=== PATIENT | male | born 1980 | race Caucasian/White ===

== ENCOUNTER 2020-07-27 08:31 | Emergency (ER) | payer OTHER ==
[~2020-07-27] VITALS: Ht 177.8 cm; Wt 99.8 kg
[~2020-07-27 08:31] MED LIST: ATOR40TA PO; B-1100 M1 PO; CEFD300 PO; CEPH500 PO; Cleocin HCl150 MG PO; DOCU100 PO; DOK100 M2 PO; HYDROCODONE-AC1 EAC5 PO; IBUP600 PO; LISI20 PO; LISINOPRIL2.5 MG PO; MOTRIN IB200 MG PO; Mobic15 MG PO; NIFE60ER PO; ONDA4ODT MM; ONDA4ODT SL; OXYACE5T PO; PRIMLEV PO; PROM25 PO; Percocet 5-3251 EACH PO; ROXICODONE5 MG PO; Ultram50 MG PO
[2020-07-27] MEDS ORDERED: Veetids 500500 MG PO (10:06)
== END 2020-07-27 10:12 | disposition home or self-care (01) ==
LOC: ER 08:31
DX: K04.7 Periapical abscess without sinus (principal); S61.432A Puncture wound without foreign body of left hand, initial encounter; F17.200 Nicotine dependence, unspecified, uncomplicated; W27.0XXA Contact with workbench tool, initial encounter
CPT/HCPCS: 73120; 99283-25

== ENCOUNTER 2020-10-15 07:19 | Emergency (ER) | payer OTHER ==
[~2020-10-15] VITALS: Ht 177.8 cm; Wt 99.8 kg
[~2020-10-15 07:19] MED LIST changes: +Veetids 500500 MG PO
[2020-10-15 08:21] LABS: BASOPHILS ABSOLUTE AUTO 0.08 K/mm3 (0.00-0.23); BASOPHILS PERCENT AUTO 0 % (0-2); EOSINOPHILS ABSOLUTE AUTO 0.06 K/mm3 (0.00-0.68); EOSINOPHILS PERCENT AUTO 0 % (0-6); Hematocrit 49.1 % (37.0-53.0); Hemoglobin 17.3 g/dL (13.5-17.5); IMMATURE GRAN ABSOLUTE AUTO 0.13 K/mm3 (0.00-0.10); IMMATURE GRAN PERCENT AUTO 1 % (0-1); LYMPHOCYTES ABSOLUTE AUTO 1.94 K/mm3 (0.84-5.20); LYMPHOCYTES PERCENT AUTO 10 % (21-46); MONOCYTES ABSOLUTE AUTO 1.69 K/mm3 (0.16-1.47); MONOCYTES PERCENT AUTO 8 % (4-13); Mean Corpuscular HGB 31.5 pg (26.0-34.0); Mean Corpuscular HGB Conc 35.2 g/dL (31.5-36.5); Mean Corpuscular Volume 89 fL (80-100); Mean Platelet Volume 11.5 fL (9.1-12.4); NEUTROPHILS PERCENT AUTO 81 % (41-73); Platelet Count 166 K/mm3 (150-400); RDW Coefficient Variation 14.3 % (11.7-14.2); RDW Standard Deviation 46.3 fL (35.1-46.3)
[2020-10-15 08:36] LABS: Alanine Aminotransfer (ALT/SGP 91 U/L (12-78); Albumin, Blood 3.9 g/dL (3.4-5.0); Alk Phos 84 U/L (50-136); Anion Gap 7 mmol/L (6-16); Aspartate Aminotrans (AST/SGOT 53 U/L (12-37); Bilirubin, Total 0.7 mg/dL (0.1-1.0); Blood Urea Nitrogen 12 mg/dL (8-24); Bun/Creatinine Ratio 12.7 (12.0-20.0); CO2, Blood 24 mmol/L (21-32); Calcium, Blood 8.6 mg/dL (8.5-10.1); Chloride, Blood 102 mmol/L (98-108); Creatinine, Blood 0.95 mg/dL (0.60-1.20); Globulin, Blood 3.8 g/dL (2.2-4.0); Glomerular Filtration Rate >60 (60-); Glucose, Blood 133 mg/dL (70-99); Potassium, Blood 3.6 mmol/L (3.5-5.5); Sodium, Blood 133 mmol/L (136-145); Total Protein, Blood 7.7 g/dL (6.4-8.2)
[2020-10-15] MEDS ORDERED: OXYC5 PO (12:23)
[2020-10-15] MEDS ORDERED: ZESTRIL40 M1 PO (12:23)
== END 2020-10-15 12:35 | disposition home or self-care (01) ==
LOC: ER 07:19
PROVIDERS: Emergency Medicine
DX: K85.90 Acute pancreatitis without necrosis or infection, unspecified (principal); F17.290 Nicotine dependence, other tobacco product, uncomplicated
CPT/HCPCS: 36415; 74177; 80053; 83690; 85025; 96361; 96374; 96375; 96376; 99285-25; J1170; J1885; J2405; J7120; Q9967

== ENCOUNTER → 2020-10-20 | Outpatient (CLI) | payer OTHER ==
[~2020-10-20] MED LIST changes: +OXYC5 PO; +ZESTRIL40 M1 PO
== END | disposition home or self-care (01) ==
LOC: LAB 19:11 → LAB SHORT 19:11
DX: F10.20 Alcohol dependence, uncomplicated (principal)
CPT/HCPCS: 82607; 82746; 84425

== ENCOUNTER → 2021-04-20 | Outpatient (CLI) | payer OTHER ==
[2021-04-20 11:29] LABS: BASOPHILS ABSOLUTE AUTO 0.04 K/mm3 (0.00-0.23); BASOPHILS PERCENT AUTO 0 % (0-2); EOSINOPHILS ABSOLUTE AUTO 0.15 K/mm3 (0.00-0.68); EOSINOPHILS PERCENT AUTO 1 % (0-6); Hemoglobin 18.5 g/dL (13.5-17.5); IMMATURE GRAN PERCENT AUTO 1 % (0-1); LYMPHOCYTES ABSOLUTE AUTO 2.24 K/mm3 (0.84-5.20); LYMPHOCYTES PERCENT AUTO 13 % (21-46); MONOCYTES ABSOLUTE AUTO 1.77 K/mm3 (0.16-1.47); MONOCYTES PERCENT AUTO 10 % (4-13); Mean Corpuscular HGB 31.1 pg (26.0-34.0); Mean Corpuscular HGB Conc 33.6 g/dL (31.5-36.5); Mean Corpuscular Volume 93 fL (80-100); Mean Platelet Volume 12.4 fL (9.1-12.4); NEUTROPHILS ABSOLUTE AUTO 13.53 K/mm3 (1.96-9.15); NEUTROPHILS PERCENT AUTO 76 % (41-73); Platelet Count 175 K/mm3 (150-400); RDW Coefficient Variation 13.3 % (11.7-14.2); RDW Standard Deviation 45.2 fL (35.1-46.3); Red Blood Cell Count 5.95 M/mm3 (4.30-5.90); White Blood Cell Count 17.83 K/mm3 (4.00-11.30)
[2021-04-20 11:30] LABS: Hematocrit 55.1 % (37.0-53.0)
[2021-04-20 11:58] LABS: Alanine Aminotransfer (ALT/SGP 89 U/L (12-78); Albumin/Globulin Ratio 1.1 (0.8-1.8); Alk Phos 65 U/L (50-136); Anion Gap 5 mmol/L (6-16); Aspartate Aminotrans (AST/SGOT 49 U/L (12-37); Bilirubin, Total 0.8 mg/dL (0.1-1.0); Blood Urea Nitrogen 14 mg/dL (8-24); Bun/Creatinine Ratio 12.2 (12.0-20.0); CO2, Blood 26 mmol/L (21-32); Calcium, Blood 9.4 mg/dL (8.5-10.1); Chloride, Blood 105 mmol/L (98-108); Creatinine, Blood 1.15 mg/dL (0.60-1.20); Globulin, Blood 3.5 g/dL (2.2-4.0); Glomerular Filtration Rate >60 (60-); Glucose, Blood 114 mg/dL (70-99); Potassium, Blood 4.4 mmol/L (3.5-5.5); Sodium, Blood 136 mmol/L (136-145); Total Protein, Blood 7.5 g/dL (6.4-8.2)
[2021-04-20 12:01] LABS: Amylase, Blood 47 U/L (25-115)
== END | disposition home or self-care (01) ==
LOC: LAB SHORT 10:02
PROVIDERS: Physician Assistant
DX: K85.90 Acute pancreatitis without necrosis or infection, unspecified (principal)
CPT/HCPCS: 80053; 82150; 83690; 85025; 86140

== ENCOUNTER 2022-11-09 13:44 | Emergency (ER) | payer OTHER ==
[~2022-11-09] VITALS: Ht 177.8 cm; Wt 99.8 kg
[2022-11-09] MEDS ORDERED: IBUP400 PO (16:36)
[2022-11-09] MEDS ORDERED: Robaxin750 MG PO (16:36)
[2022-11-09] MEDS ORDERED: LIDO700A20 TOP (16:36)
[2022-11-09] MEDS ORDERED: ACET500 PO (16:36)
[2022-11-09 17:15] VITALS: BP 138/87
== END 2022-11-09 17:18 | disposition home or self-care (01) ==
LOC: ER 13:44
DX: S30.0XXA Contusion of lower back and pelvis, initial encounter (principal); M62.830 Muscle spasm of back; I10 Essential (primary) hypertension; F17.200 Nicotine dependence, unspecified, uncomplicated; Z79.899 Other long term (current) drug therapy; W11.XXXA Fall on and from ladder, initial encounter
CPT/HCPCS: 72131; 73502; 96372; 99284-25; A9270; J1885

== ENCOUNTER 2023-02-01 20:46 | Inpatient (IN) | payer OTHER ==
[~2023-02-01] VITALS: Ht 177.8 cm; Wt 101.0 kg
[~2023-02-01 20:46] MED LIST changes: +ACET500 PO; +IBUP400 PO; +LIDO700A20 TOP; +Robaxin750 MG PO
[2023-02-01 21:47] LABS: BASOPHILS ABSOLUTE AUTO 0.11 K/mm3 (0.00-0.23); BASOPHILS PERCENT AUTO 1 % (0-2); EOSINOPHILS ABSOLUTE AUTO 0.13 K/mm3 (0.00-0.68); EOSINOPHILS PERCENT AUTO 1 % (0-6); Hematocrit 52.5 % (37.0-53.0); Hemoglobin 18.5 g/dL (13.5-17.5); IMMATURE GRAN ABSOLUTE AUTO 0.13 K/mm3 (0.00-0.10); IMMATURE GRAN PERCENT AUTO 1 % (0-1); LYMPHOCYTES ABSOLUTE AUTO 1.57 K/mm3 (0.84-5.20); LYMPHOCYTES PERCENT AUTO 7 % (21-46); MONOCYTES ABSOLUTE AUTO 1.47 K/mm3 (0.16-1.47); MONOCYTES PERCENT AUTO 6 % (4-13); Mean Corpuscular HGB 29.8 pg (26.0-34.0); Mean Corpuscular HGB Conc 35.2 g/dL (31.5-36.5); Mean Corpuscular Volume 85 fL (80-100); Mean Platelet Volume 11.2 fL (9.1-12.4); NEUTROPHILS ABSOLUTE AUTO 20.47 K/mm3 (1.96-9.15); NEUTROPHILS PERCENT AUTO 86 % (41-73); Platelet Count 189 K/mm3 (150-400); RDW Coefficient Variation 13.3 % (11.7-14.2); Red Blood Cell Count 6.21 M/mm3 (4.30-5.90); White Blood Cell Count 23.88 K/mm3 (4.00-11.30)
[2023-02-01 22:20] LABS: Albumin, Blood 4.1 g/dL (3.4-5.0); Albumin/Globulin Ratio 1.1 (0.8-1.8); Bilirubin, Total 0.6 mg/dL (0.1-1.0); Bun/Creatinine Ratio 10.1 (12.0-20.0); Calcium, Blood 9.2 mg/dL (8.5-10.1); Creatinine, Blood 1.19 mg/dL (0.60-1.20); Globulin, Blood 3.6 g/dL (2.2-4.0); Potassium, Blood 4.2 mmol/L (3.5-5.5); Total Protein, Blood 7.7 g/dL (6.4-8.2)
[2023-02-02] VITALS (8 sets, daily range): BP systolic 151–201; BP diastolic 99–123
[2023-02-02 01:18] LABS: Source, Urine Voided
[2023-02-02 01:27] LABS: Bilirubin, Urine Neg (Neg); Blood, Urine 2+ (Neg); Glucose Qualitative, Urine Neg (Neg); Ketones, Urine 1+ (Neg); Leukocyte Esterase, Urine Neg (Neg); Nitrite, Urine Neg (Neg); Protein, Urine 2+ (Neg); Specific Gravity, Urine 1.015 (1.003-1.022); Urobilinogen, Urine NORM (Normal); pH, Urine 6.5 (5.0-8.0)
[2023-02-02 01:33] LABS: Appearance, Urine Clear (Clear); Color, Urine Yellow (P-Yellow)
[2023-02-02 01:34] LABS: Bacteria Not Seen /hpf; Squamous Epithelial Cells Not Seen /hpf (Few); White Blood Cells, Urine Not Seen /hpf (0-5)
--- NOTE | 2023-02-02 06:50 | NUR ---
SHIFT SUMMARY PT ARRIVED ON UNIT C/O 1010 PAIN. IVF STARTED, THIAMINE & FOLIC ACID GIVEN, PRN HYDRALAZINE GIVEN FOR HIGH BP WITH VERY MINIMAL EFFECT. DILAUDID TURRET PUNCH OPERATOR STARTED WITH CINDA VALIENTE RN (SURGICAL NURSE) VIA NEWLY PLACED IV. PT STILL C/O 1010 PAIN AND THAT THE DILAUDID IS MAKING HIM NAUSEOUS. PRN REGLAN GIVEN. PT STATES NO RELIEF FROM ANY MEDICATIONS AND GETS OOB AND SCREAMS I DONT KNOW WHATS WRONG WITH ME I NEED TO FIGURE IT OUT, BUT THRASHES HIMSELF ALL AROUND. EXPLAINED TO HIM THAT HIS PAIN WAS NOT INTENSE UNTIL HE STARTED MOVING AROUND RAPIDLY, HE REFUSED TO SIT STILL BECAUSE HE NEEDS TO FIGURE OUT WHAT IS WRONG EVEN THOUGH ITS CAUSING MORE PAIN.
[2023-02-02 07:49] LABS: BASOPHILS ABSOLUTE AUTO 0.08 K/mm3 (0.00-0.23); BASOPHILS PERCENT AUTO 0 % (0-2); EOSINOPHILS ABSOLUTE AUTO 0.01 K/mm3 (0.00-0.68); EOSINOPHILS PERCENT AUTO 0 % (0-6); Hematocrit 48.9 % (37.0-53.0); Hemoglobin 17.3 g/dL (13.5-17.5); IMMATURE GRAN ABSOLUTE AUTO 0.21 K/mm3 (0.00-0.10); IMMATURE GRAN PERCENT AUTO 1 % (0-1); LYMPHOCYTES ABSOLUTE AUTO 1.21 K/mm3 (0.84-5.20); LYMPHOCYTES PERCENT AUTO 5 % (21-46); MONOCYTES ABSOLUTE AUTO 1.73 K/mm3 (0.16-1.47); MONOCYTES PERCENT AUTO 7 % (4-13); Mean Corpuscular HGB 30.1 pg (26.0-34.0); Mean Corpuscular HGB Conc 35.4 g/dL (31.5-36.5); Mean Corpuscular Volume 85 fL (80-100); Mean Platelet Volume 11.4 fL (9.1-12.4); NEUTROPHILS ABSOLUTE AUTO 21.84 K/mm3 (1.96-9.15); NEUTROPHILS PERCENT AUTO 87 % (41-73); Platelet Count 145 K/mm3 (150-400); RDW Coefficient Variation 13.5 % (11.7-14.2); RDW Standard Deviation 41.7 fL (35.1-46.3); Red Blood Cell Count 5.74 M/mm3 (4.30-5.90); White Blood Cell Count 25.08 K/mm3 (4.00-11.30)
[2023-02-02 08:11] LABS: Albumin, Blood 3.5 g/dL (3.4-5.0); Bilirubin, Total 0.6 mg/dL (0.1-1.0); Bun/Creatinine Ratio 8.7 (12.0-20.0); Calcium, Blood 9.1 mg/dL (8.5-10.1); Creatinine, Blood 1.04 mg/dL (0.60-1.20); Globulin, Blood 3.4 g/dL (2.2-4.0); Potassium, Blood 3.8 mmol/L (3.5-5.5); Total Protein, Blood 6.9 g/dL (6.4-8.2)
--- NOTE | 2023-02-02 08:51 | NUR ---
AT APROX 0815 PT CALLED STATING NAIL CUTTER IS NOT WORKING. RN ASSESSED, PT HAS REACHED 4HR MAX OF 2MG. PT APPEARS TEARFUL, REPORTING 10/10 PAIN, MD NOTIFIED, NEW ORDER FOR TORADOL
--- NOTE | 2023-02-02 13:46 | NUR ---
PT ABD DISTENDED, TENDER W/PALPATION, INCREASED IN LOWER ABD. PT MAE FLATUS X'S 2 DAYS, REPORTS NO BM IN 5. DENIES N/V. VEST BUSHELER SETTINGS ADJUSTED PER EMAR. PT CONTINUES TO HAVE SEVERE ABD PAIN, IS ABLE TO SLEEP AT TIMES. CONTINOUS BIOX IN PLACE. 92% ON RA. PT HAD UNMEASURED VOID, WILL COLLECT TOX SCREEN WITH NEXT VOID.
[2023-02-02 14:23] LABS: CHOL/HDL RATIO 3.7; Cholesterol 148 mg/dL (50-200); Ethanol (Alcohol), Blood, Med <3 mg/dL; HDL Cholesterol 40 mg/dL (>39); LDL/HDL RATIO Unable to Calculate; Low Density Lipoprotein Chol Unable to Calculate mg/dL (0-110); Triglycerides 484 mg/dL (30-160); Very Low Density Lipoprot Chol 97 mg/dL (6-32)
--- NOTE | 2023-02-02 17:55 | NUR ---
SHIFT SUMMARY PT HAS CONTINUED TO HAVE PAIN T/O SHIFT IN LOWER ABD/L LOWER BACK. RN HEDIS W/CONTINOUS RATE AND BOLUS RUNNING. IV ABX THIS SHIFT. PT MEDICATED ONCE FOR ANXIETY WITH 1MG ATIVAN. HTN T/O SHIFT THAT CONTINUED ONCE PT APPEARED RELAXED, MEDICATED WITH 20MG APRESOLINE. BP DECREASED TO 160/98. PT ON BOWEL REST W/SMALL AMT ICE CHIPS. IVF AT 100ML/HR. PT HAD 1 UNMEASSURED VOID THIS SHIFT. IF PT IS UNABLE TO VOID BEFORE END OF SHIFT WILL BLADDER SCAN.
[2023-02-03 00:41] LABS: U Amphetamine Screen Not Detected; U Barbituate Screen Not Detected; U Benzodiazapine Screen DETECTED; U Buprenorphine Screen Not Detected; U Cannabinoids Screen DETECTED; U Cocaine Screen Not Detected; U Methadone Screen Not Detected; U Methamphetamine Screen Not Detected; U Opiates Screen DETECTED; U Oxycodone Screen DETECTED; U Phencyclidine Screen Not Detected; U Propoxyphene Screen Not Detected
--- NOTE | 2023-02-03 00:42 | NUR ---
CALLED HOSPITALIST REGUARDING PT'S UNCONTROLLED PAIN. DILAUDID POLICY OFFICER CONT RATE INCREASED WELL A ONE TIME .5MG DOSE.
[2023-02-03 03:52] VITALS: BP 147/99
[2023-02-03 04:12] LABS: BASOPHILS ABSOLUTE AUTO 0.05 K/mm3 (0.00-0.23); BASOPHILS PERCENT AUTO 0 % (0-2); EOSINOPHILS ABSOLUTE AUTO 0.03 K/mm3 (0.00-0.68); EOSINOPHILS PERCENT AUTO 0 % (0-6); Hematocrit 44.6 % (37.0-53.0); Hemoglobin 15.6 g/dL (13.5-17.5); IMMATURE GRAN ABSOLUTE AUTO 0.11 K/mm3 (0.00-0.10); IMMATURE GRAN PERCENT AUTO 1 % (0-1); LYMPHOCYTES ABSOLUTE AUTO 1.06 K/mm3 (0.84-5.20); LYMPHOCYTES PERCENT AUTO 5 % (21-46); MONOCYTES ABSOLUTE AUTO 1.59 K/mm3 (0.16-1.47); MONOCYTES PERCENT AUTO 8 % (4-13); Mean Corpuscular HGB 30.3 pg (26.0-34.0); Mean Corpuscular Volume 87 fL (80-100); NEUTROPHILS ABSOLUTE AUTO 17.23 K/mm3 (1.96-9.15); NEUTROPHILS PERCENT AUTO 86 % (41-73); Platelet Count 106 K/mm3 (150-400); RDW Coefficient Variation 13.6 % (11.7-14.2); RDW Standard Deviation 42.6 fL (35.1-46.3); Red Blood Cell Count 5.15 M/mm3 (4.30-5.90); White Blood Cell Count 20.07 K/mm3 (4.00-11.30)
[2023-02-03 04:34] LABS: Anion Gap 2 mmol/L (6-16); Blood Urea Nitrogen 12 mg/dL (8-24); CO2, Blood 30 mmol/L (21-32); Chloride, Blood 103 mmol/L (98-108); Glomerular Filtration Rate 98 (60-); Glucose, Blood 127 mg/dL (70-99); Phosphorus, Blood 2.6 mg/dL (2.5-4.9); Potassium, Blood 4.2 mmol/L (3.5-5.5); Sodium, Blood 135 mmol/L (136-145)
--- NOTE | 2023-02-03 05:19 | NUR ---
SUMMARY- PT A/O X4, WITHDRAWN RELATED TO SEVERE PAIN. PT'S ABD IS TAUGHT AND DISTENDED, BOWEL TONES HYPOACTIVE, DENIES PASSING FLATUS. STATES LAST BM 4 DAYS AGO. STATES HE FEELS CONSTIPATED BUT REFUSES SUPPOSITORY. PT CONTINUALLY GETTING UP TO BATHROOM AND BSC ATTEMPTING TO HAVE BM WITH NO RESULTS. VOIDING, URINE APPEARS MED YELLOW. IVF LR AT 125. OCCUPATIONAL HEALTH NURSING DIRECTOR WITH BASAL INCREASIE AROUND 2345 TO 0.6MG HR WITH .2MG Q20 MIN. BETTER CONTROLLED LATER SHIFT THAN THE BEGINNING. MEDICATED WITH REGLAN X1 FOR NAUSEA. ATIVAN 1MG ADMIN X2 LAST NIGHT RELATED TO SEVERE ANXIETY, AIDED IN REST AND PAIN RELEIF. ABD MORE PAINFUL WITH DEEP INSPIRATIONS, USING OXYGEN AT 2L, CONT PULSE OX SATTING 95-96% BP ELEVATED EARLY SHIFT, HYDRALAZINE 10MG IV X2, MIDNIGHT BP SBP 150. PT TAKES OFF OXYGEN OCC AND SATS ARE 89% ON ROOM AIR. WILL REPORT TO DAY RN.
--- NOTE | 2023-02-03 07:40 | NUR ---
ASSUMED CARE: ENTERED ROOM TO FIND PT STANDING IN BATHROOM, BREATHING HEAVILY. UPON SITTING DOWN IN BED, BREATHING EASED AND NASAL CANNULA REPLACED. STATES HE HAS DIFFICULTY TAKING A DEEP BREATH DUE TO THE PAIN. 3L NC. DILAUDID RAIL WALKER IN PLACE. BSC PROVIDED AT BEDSIDE. CALL LIGHT IN REACH
[2023-02-03 08:26] VITALS: BP 151/107
--- NOTE | 2023-02-03 09:00 | NUR ---
DR LI CAME TO SEE PT AND INSTRUCTED FOR INCENTIVE SPIROMETER TO PREVENT RESPIRATORY COMPLICATIONS. PT GETS SOB AND TAKES SHALLOW BREATHS WITH EXERTION. NO ORDERS FOR ORAL BOWEL CARE AT THIS TIME. PT DECLINED SUPPOSITORY
--- NOTE | 2023-02-03 17:22 | NUR ---
SHIFT SUMMARY: SKIRT TRIMMER PUMP IN PLACE FOR PT'S PAIN. MEDICATED WITH TORADOL WELL WITH STATED RELIEF. NPO EXCEPT ICE AT THIS TIME. SOB WITH EXERTION AND STATES HE HAS A HARD TIME TAKING A DEEP BREATH WITH PAIN. FAMILY AT BEDSIDE. NO ACUTE NEEDS AT THIS TIME.
[2023-02-03 19:11] VITALS: BP 166/93
--- NOTE | 2023-02-04 04:07 | NUR ---
SUMMARY- PT A/O X4, GREAT IMPROVEMENT IN BOWEL STATUS THIS SHIFT. BOWEL TONES IMPROVED AND NORMOACTIVE, ABD LESS TENDER, ABLE TO AMBULATE AND NOT BE IN EXCRUCIATING PAIN. PT STATES HE IS PASSING GAS NOW. TOLERATING ICE CHIPS WITHOUT TROUBLE. HYDROGEN OPERATOR IN USE, EFFECTIVE THIS SHIFT TO KEEP PAIN AT A TOLERABLE LEVEL AEB PT SLEEPING MOST OF THE SHIFT AND STATES PAIN TOLERABLE. PT IS MORE JOVIAL AND INTERACTIV- VS IMPROVED ESPECIALLY HR DOWN INTO 80-90'S (LAST NIGHT 110-130'S. PT'S BP IMPROVED AND PT DENIES NAUSEA. VOIDING MED YELLOW. REQUESTING TO EAT, STATES HE'S BEEN THROUGH THIS BEFORE AND HE FEELS HE IS READY TO START EATING A LITTLE FOOD. WILL REPORT TO DAY RN
[2023-02-04 04:34] VITALS: BP 162/101
[2023-02-04 05:23] LABS: Alanine Aminotransfer (ALT/SGP 144 U/L (12-78); Albumin, Blood 2.7 g/dL (3.4-5.0); Albumin/Globulin Ratio 0.7 (0.8-1.8); Alk Phos 66 U/L (50-136); Aspartate Aminotrans (AST/SGOT 35 U/L (12-37); Bilirubin, Direct 0.2 mg/dL (0.0-0.3); Bilirubin, Indirect 0.4 mg/dL (0.1-0.7); Bilirubin, Total 0.6 mg/dL (0.1-1.0); CHOL/HDL RATIO 3.2; Cholesterol 97 mg/dL (50-200); Globulin, Blood 4.1 g/dL (2.2-4.0); HDL Cholesterol 30 mg/dL (>39); LDL/HDL RATIO 1.2; Low Density Lipoprotein Chol 36 mg/dL (0-110); Total Protein, Blood 6.8 g/dL (6.4-8.2); Triglycerides 153 mg/dL (30-160); Very Low Density Lipoprot Chol 30 mg/dL (6-32)
[2023-02-04 07:47] VITALS: BP 166/103
[2023-02-04 09:13] LABS: BASOPHILS ABSOLUTE AUTO 0.03 K/mm3 (0.00-0.23); BASOPHILS PERCENT AUTO 0 % (0-2); EOSINOPHILS ABSOLUTE AUTO 0.17 K/mm3 (0.00-0.68); EOSINOPHILS PERCENT AUTO 1 % (0-6); Hematocrit 41.1 % (37.0-53.0); Hemoglobin 13.9 g/dL (13.5-17.5); IMMATURE GRAN ABSOLUTE AUTO 0.07 K/mm3 (0.00-0.10); IMMATURE GRAN PERCENT AUTO 1 % (0-1); LYMPHOCYTES ABSOLUTE AUTO 0.99 K/mm3 (0.84-5.20); LYMPHOCYTES PERCENT AUTO 8 % (21-46); MONOCYTES ABSOLUTE AUTO 1.13 K/mm3 (0.16-1.47); MONOCYTES PERCENT AUTO 9 % (4-13); Mean Corpuscular HGB Conc 33.8 g/dL (31.5-36.5); Mean Corpuscular Volume 89 fL (80-100); NEUTROPHILS ABSOLUTE AUTO 10.75 K/mm3 (1.96-9.15); NEUTROPHILS PERCENT AUTO 82 % (41-73); Platelet Count 84 K/mm3 (150-400); RDW Coefficient Variation 13.7 % (11.7-14.2); RDW Standard Deviation 44.7 fL (35.1-46.3); Red Blood Cell Count 4.63 M/mm3 (4.30-5.90); White Blood Cell Count 13.14 K/mm3 (4.00-11.30)
[2023-02-04 09:21] LABS: Albumin, Blood 2.7 g/dL (3.4-5.0); Anion Gap 6 mmol/L (6-16); Blood Urea Nitrogen 14 mg/dL (8-24); Bun/Creatinine Ratio 14.2 (12.0-20.0); CO2, Blood 27 mmol/L (21-32); Calcium, Blood 8.8 mg/dL (8.5-10.1); Chloride, Blood 104 mmol/L (98-108); Creatinine, Blood 0.99 mg/dL (0.60-1.20); Glomerular Filtration Rate 99 (60-); Glucose, Blood 119 mg/dL (70-99); Phosphorus, Blood 2.8 mg/dL (2.5-4.9); Potassium, Blood 3.9 mmol/L (3.5-5.5); Sodium, Blood 137 mmol/L (136-145)
[2023-02-04 16:44] VITALS: BP 188/113
[2023-02-04 19:37] VITALS: BP 160/93
[2023-02-05 04:15] VITALS: BP 158/97
[2023-02-05 05:00] LABS: BASOPHILS ABSOLUTE AUTO 0.02 K/mm3 (0.00-0.23); BASOPHILS PERCENT AUTO 0 % (0-2); EOSINOPHILS ABSOLUTE AUTO 0.17 K/mm3 (0.00-0.68); EOSINOPHILS PERCENT AUTO 2 % (0-6); Hematocrit 40.8 % (37.0-53.0); Hemoglobin 13.9 g/dL (13.5-17.5); IMMATURE GRAN ABSOLUTE AUTO 0.07 K/mm3 (0.00-0.10); IMMATURE GRAN PERCENT AUTO 1 % (0-1); LYMPHOCYTES ABSOLUTE AUTO 1.29 K/mm3 (0.84-5.20); LYMPHOCYTES PERCENT AUTO 12 % (21-46); MONOCYTES ABSOLUTE AUTO 1.07 K/mm3 (0.16-1.47); MONOCYTES PERCENT AUTO 10 % (4-13); Mean Corpuscular HGB 29.6 pg (26.0-34.0); Mean Corpuscular HGB Conc 34.1 g/dL (31.5-36.5); Mean Corpuscular Volume 87 fL (80-100); Mean Platelet Volume 11.9 fL (9.1-12.4); NEUTROPHILS ABSOLUTE AUTO 7.84 K/mm3 (1.96-9.15); NEUTROPHILS PERCENT AUTO 75 % (41-73); Platelet Count 117 K/mm3 (150-400); RDW Coefficient Variation 13.3 % (11.7-14.2); RDW Standard Deviation 42.5 fL (35.1-46.3); White Blood Cell Count 10.46 K/mm3 (4.00-11.30)
--- NOTE | 2023-02-05 05:17 | NUR ---
SUMMARY- PT A/O X4, INDEPENDANT HAD A SHOWER BEFORE BED. TOLERATING CLEAR LIQUIDS INCLUDING BROTH, POPCYCLES AND APPLE JUICE. STATES HE IS SURE HE IS READY FOR SOLID FOODS- PT REPORTED XL BM, HARD AT FIRST, THAN CAME OUT SOFT/BROWN. PT HAS HAD NO NAUSEA THIS SHIFT. BOWEL TONES NORMOACTIVE. CONT IVF AND DILAUDID HUMAN RESOURCES CLERK IN USE, PAIN CONTROLLED, PAIN GREATLY DECREASED FROM YESTERDAY. PT SPEPT INTERMITTANTLY THROUGH THE NIGHT. WILL REPORT TO DAY RN.
[2023-02-05 06:09] LABS: Albumin, Blood 2.8 g/dL (3.4-5.0); Anion Gap 4 mmol/L (6-16); Blood Urea Nitrogen 15 mg/dL (8-24); CO2, Blood 29 mmol/L (21-32); Chloride, Blood 102 mmol/L (98-108); Creatinine, Blood 1.07 mg/dL (0.60-1.20); Glomerular Filtration Rate 90 (60-); Glucose, Blood 132 mg/dL (70-99); Phosphorus, Blood 3.1 mg/dL (2.5-4.9); Potassium, Blood 3.5 mmol/L (3.5-5.5); Sodium, Blood 135 mmol/L (136-145)
[2023-02-05 08:14] VITALS: BP 165/103
[2023-02-05 09:55] VITALS: BP 169/93
--- NOTE | 2023-02-05 16:07 | NUR ---
ATTEMPTED TO START IV ANTIBIOTIC FOR PT. PT INFORMED ME "I AM DONE, I WANT TO LEAVE. I DON'T HAVE ANY MORE PAIN, I PLAN TO DRINK LIQUIDS WHEN I GO HOME." THIS RN REQUESTED HE WAIT SO I CAN CALL THE DOCTOR AND PT AGREED TO WAIT. ALSO REQUESTED IF I CAN RUN IS ABX AND HE STATED "NO". THIS RN CALLED DR. LI AND GAVE SBAR. DR. LI WAS OKAY TO DISCHARGE PT. PT UPDATED AND HE STATED HE WOULD WAIT FOR DISCHARGE ORDERS. IV REMOVED AT HIS REQUEST.
[2023-02-05] MEDS ORDERED: TRAM50 PO (16:14)
[2023-02-05] MEDS ORDERED: ONDA4ODT MM (16:14)
[2023-02-05] MEDS ORDERED: MIRALAX17 GM PO (16:15)
--- NOTE | 2023-02-05 16:36 | NUR ---
PT DISCHARGED HOME. WHILE THIS NURSE WAS ON LUNCH, PT STARTED DRESSING AND STATED HE WAS READY TO GO HOME. THE NURSE COVERING DURING LUNCH BREAK CALLED DR GUERRERO, WHO PUT IN DC ORDERS. DC INSTRUCTIONS AND EDUCATION MATERIAL EXPLAIED TO PT. NO NEW QUESTIONS OR CONCERNS. IV DC'D. PERSCRIPTIONS FAXED TO PHARMACY AND PERSCRIPTION FOR PAIN MEDICATON GIVEN TO PT WITH INSCTRUCTIONS THAT MED WOULD ONLY BE FILLED ONCE SCRIPT WAS GIVEN TO [facility]AR[facility]. ALL BELONGINS SENT HOME WITH PT. PT WALKED WITH GF TO WAITING VEHICLE.
== END 2023-02-05 16:32 | disposition home or self-care (01) | DRG 439 ==
LOC: ER 20:46 → ERHOLD 02-02 00:07 → MEDS 02-02 00:07
PROVIDERS: Emergency Medicine; Family Medicine; ADMIT Student in an Organized Health Care Education/Training Program
DX: K85.21 Alcohol induced acute pancreatitis with uninfected necrosis (principal); E87.1 Hypo-osmolality and hyponatremia; K86.3 Pseudocyst of pancreas; E78.1 Pure hyperglyceridemia; D69.6 Thrombocytopenia, unspecified; R94.5 Abnormal results of liver function studies; D45 Polycythemia vera; I10 Essential (primary) hypertension; F12.90 Cannabis use, unspecified, uncomplicated; K21.9 Gastro-esophageal reflux disease without esophagitis; F17.210 Nicotine dependence, cigarettes, uncomplicated; F10.10 Alcohol abuse, uncomplicated; D72.829 Elevated white blood cell count, unspecified; K59.00 Constipation, unspecified; Z79.899 Other long term (current) drug therapy; Z79.891 Long term (current) use of opiate analgesic; Z98.890 Other specified postprocedural states
CPT/HCPCS: 36415; 74177; 80053; 80061; 80069; 80076; 81001; 83615; 83690; 84484; 85025; 93005; 93010; 94762; 96374-59; 96375; 96376; 99285-25; A9270; C9113; J0360; J1170; J1650; J1885; J2060; J2185; J2270; J2405; J2765; J3411; J7050; J7120; Q9967

== ENCOUNTER 2023-10-17 01:50 | Observation (INO) | payer OTHER ==
[~2023-10-17] VITALS: Ht 177.8 cm; Wt 93.8 kg
[2023-10-17] VITALS (12 sets, daily range): BP systolic 105–154; BP diastolic 48–107
[~2023-10-17 01:50] MED LIST changes: +MIRALAX17 GM PO; +TRAM50 PO
[2023-10-17] MEDS ORDERED: CYCL10 PO (02:12)
[2023-10-17] MEDS ORDERED: Ketorolac Tromethamine 30mg Vial IV ONE (02:25)
[2023-10-17 02:32] LABS: BASOPHILS ABSOLUTE AUTO 0.07 K/mm3 (0.00-0.23); BASOPHILS PERCENT AUTO 1 % (0-2); EOSINOPHILS ABSOLUTE AUTO 0.32 K/mm3 (0.00-0.68); EOSINOPHILS PERCENT AUTO 3 % (0-6); Hematocrit 41.9 % (37.0-53.0); Hemoglobin 14.3 g/dL (13.5-17.5); IMMATURE GRAN ABSOLUTE AUTO 0.04 K/mm3 (0.00-0.10); IMMATURE GRAN PERCENT AUTO 0 % (0-1); LYMPHOCYTES ABSOLUTE AUTO 1.93 K/mm3 (0.84-5.20); LYMPHOCYTES PERCENT AUTO 18 % (21-46); MONOCYTES ABSOLUTE AUTO 1.07 K/mm3 (0.16-1.47); MONOCYTES PERCENT AUTO 10 % (4-13); Mean Corpuscular HGB 29.5 pg (26.0-34.0); Mean Corpuscular HGB Conc 34.1 g/dL (31.5-36.5); Mean Corpuscular Volume 86 fL (80-100); Mean Platelet Volume 11.4 fL (9.1-12.4); NEUTROPHILS ABSOLUTE AUTO 7.28 K/mm3 (1.96-9.15); NEUTROPHILS PERCENT AUTO 68 % (41-73); Platelet Count 187 K/mm3 (150-400); RDW Coefficient Variation 13.8 % (11.7-14.2); RDW Standard Deviation 43.4 fL (35.1-46.3); Red Blood Cell Count 4.85 M/mm3 (4.30-5.90); White Blood Cell Count 10.71 K/mm3 (4.00-11.30)
[2023-10-17 02:49] LABS: Albumin, Blood 3.8 g/dL (3.4-5.0); Bilirubin, Total 0.4 mg/dL (0.1-1.0); Bun/Creatinine Ratio 18.1 (12.0-20.0); Creatinine, Blood 1.05 mg/dL (0.60-1.20); Globulin, Blood 3.8 g/dL (2.2-4.0); Potassium, Blood 3.9 mmol/L (3.5-5.5); Total Protein, Blood 7.6 g/dL (6.4-8.2)
[2023-10-17] MEDS ORDERED: Diphth,Pertuss(Acell),Tet Vac 0.5 ML VIAL IM ONE (03:25)
[2023-10-17] MEDS ORDERED: Trimethoprim/Sulfamethoxazole DS Tab PO ONE (03:25)
[2023-10-17] MEDS ORDERED: CefTRIAXone Sodium 1,000 MG in NS 50 ML IV ONE (03:30)
[2023-10-17] MEDS ORDERED: Acetaminophen 500 MG Tab PO ONE (03:35)
[2023-10-17] MEDS ORDERED: FentaNYL Citrate 50 MCG/ML 2 ML Injection IV ONE (04:10)
[2023-10-17] MEDS ORDERED: FentaNYL Citrate 50 MCG/ML 2 ML Injection IV PRN (04:40)
[2023-10-17] MEDS ORDERED: HYDROmorphone HCl/Pf 1MG SYR IV ONE (04:45)
[2023-10-17] MEDS ORDERED: NS 1,000 ML IV SCH (05:00)
--- NOTE | 2023-10-17 06:25 | NUR ---
ARRIVAL TO UNIT PT ARRIVED TO UNIT AT APPROX 0535. PT ACME FROM ER BY SHADI TRANSFERRED OVER TO BED IND. PT ABLE TO WALK AROUND ROOM WITH NO ASST. PT IN A GREAT DEAL OF PAIN. LOWER ABD IS VERY RED AND HOT, THERE IS A WHITE HEAD PRESENT. POSSIBLE ABCESS IN THE ABD WALL. PT EDUCATED RESIDENTIAL SALES EXECUTIVE LIGHT. PT SLIGHTLY HTN. FLUIDS RUNNING, PT NPO AT THIS TIME, FOR POSSIBLE SURGERY LATER. NO OTHER CONCERNS AT THIS TIME, CALL LIGHT WITHIN REACH
[2023-10-17] MEDS ORDERED: Piperacillin/Tazobactam Sod 3.375 GM in NS 100 ML IV SCH (08:15)
[2023-10-17] MEDS ORDERED: OxyCODONE HCL 5 MG TAB PO PRN (08:20)
[2023-10-17] MEDS ORDERED: Ondansetron HCl 2 MG / ML 2ML Vial IV PRN (08:20)
[2023-10-17] MEDS ORDERED: HYDROmorphone HCl/Pf 1MG SYR IV PRN (08:25)
[2023-10-17] MEDS ORDERED: Metoclopramide HCl 5MG / ML 2ML Vial IV PRN (08:25)
[2023-10-17] MEDS ORDERED: Lactated Ringer's 1,000 ML IV SCH ×2 (08:25→10:50)
[2023-10-17] MEDS ORDERED: Acetaminophen 325 MG TABLET PO PRN (08:25)
[2023-10-17] MEDS ORDERED: DEPO-TESTO200 MG/18 IM (08:26)
[2023-10-17] MEDS ORDERED: Ketorolac Tromethamine 15mg Vial IV PRN (08:30)
[2023-10-17] MEDS ORDERED: propofoL 20 ML IV ONE (10:17)
[2023-10-17] MEDS ORDERED: FentaNYL Citrate 50 MCG/ML 2 ML Injection ONE (10:17)
[2023-10-17] MEDS ORDERED: Bupivacaine 0.5% HCl 5 MG/ML 30MLVIAL ONE (10:48)
[2023-10-17] MEDS ORDERED: Midazolam HCl 1MG / ML 2ML Vial ONE (10:57)
[2023-10-17] MEDS ORDERED: Midazolam HCl 1MG / ML 2ML Vial IV SCH (11:00)
--- NOTE | 2023-10-17 11:02 | NUR ---
FLUSHED IV SITE RFA WITH 10NS/PATENT.
[2023-10-17] MEDS ORDERED: Ondansetron HCl 2 MG / ML 2ML Vial ONE (11:07)
[2023-10-17] MEDS ORDERED: Ketorolac Tromethamine 30mg Vial ONE (11:07)
[2023-10-17] MEDS ORDERED: Dexamethasone Sod Phos 10 MG/ML 1ML VIAL ONE (11:07)
[2023-10-17] MEDS ORDERED: TraMADol HCl 50 MG Tab PO PRN (11:55)
[2023-10-17] MEDS ORDERED: AMOCLA875 PO (13:56)
[2023-10-17] MEDS ORDERED: TRAM50 PO (13:58)
--- NOTE | 2023-10-17 15:50 | NUR ---
DISCHARGE PT A&OX4, VSS/RA, KAYCE PO, VOIDING/BM, AMB INDEPENDENTLY, PAIN MANAGED, IV DC'D. DC INS PROVIDED. PT REP UNDERSTANDING THOSE INSTRUCTIONS INCLUDING DRESSING CHANGES. LEFT FLOOR WITH ALL PERSONAL POSSESSIONS INCLUDING DRESSING SUPPLIES AND DC PACKET.
== END 2023-10-17 15:00 | disposition home or self-care (01) ==
LOC: ER 01:50 → SURS 01:52
PROVIDERS: Emergency Medicine; ADMIT Surgery
DX: L02.211 Cutaneous abscess of abdominal wall (principal); I10 Essential (primary) hypertension; F17.210 Nicotine dependence, cigarettes, uncomplicated; Z88.1 Allergy status to other antibiotic agents; Z79.899 Other long term (current) drug therapy
CPT/HCPCS: 74177; 80053; 83605; 85025; 87070; 87075; 87077; 87147; 87186; 87205; 96365; 96374-59; 96375-59; 96376; 99284-25; A9270; G0378; J0696; J1100; J1170; J1885; J2250; J2405; J2543; J2704; J3010; J7030; Q9967

== ENCOUNTER 2023-11-13 00:01 | Emergency (ER) | payer OTHER ==
[~2023-11-13] VITALS: Ht 177.8 cm; Wt 99.8 kg
[~2023-11-13 00:01] MED LIST changes: +AMOCLA875 PO; +CYCL10 PO; +DEPO-TESTO200 MG/18 IM
[2023-11-13] MEDS ORDERED: Cyclobenzaprine5 MG PO (00:21)
[2023-11-13] MEDS ORDERED: Aspir 8181 MG PO (00:22)
[2023-11-13 01:00] VITALS: BP 140/90
[2023-11-13] MEDS ORDERED: SULTRIDS PO (02:15)
[2023-11-13] MEDS ORDERED: Trimethoprim/Sulfamethoxazole DS Tab PO ONE (02:15)
== END 2023-11-13 02:24 | disposition home or self-care (01) ==
LOC: ER 00:01
DX: L02.01 Cutaneous abscess of face (principal); I10 Essential (primary) hypertension; F17.210 Nicotine dependence, cigarettes, uncomplicated; Z86.14 Personal history of Methicillin resistant Staphylococcus aureus infection; Z79.82 Long term (current) use of aspirin; Z79.899 Other long term (current) drug therapy
CPT/HCPCS: 10140; 99282-25; A9270

== ENCOUNTER 2023-11-17 01:55 | Emergency (ER) | payer OTHER ==
[~2023-11-17] VITALS: Ht 177.8 cm; Wt 99.8 kg
[~2023-11-17 01:55] MED LIST changes: +Aspir 8181 MG PO; +Cyclobenzaprine5 MG PO; +SULTRIDS PO
[2023-11-17] MEDS ORDERED: Ketorolac Tromethamine 30mg Vial IM ONE (07:25)
[2023-11-17] MEDS ORDERED: FentaNYL Citrate 50 MCG/ML 2 ML Injection IV ONE (07:55)
[2023-11-17] MEDS ORDERED: Clindamycin 600mg in D5W 50 ML IV ONE (07:55)
[2023-11-17] MEDS ORDERED: Ketorolac Tromethamine 30mg Vial IV ONE (07:55)
[2023-11-17] MEDS ORDERED: CefTRIAXone Sodium 1,000 MG in NS 50 ML IV ONE (08:00)
[2023-11-17 08:14] LABS: BASOPHILS ABSOLUTE AUTO 0.06 K/mm3 (0.00-0.23); BASOPHILS PERCENT AUTO 1 % (0-2); EOSINOPHILS ABSOLUTE AUTO 0.54 K/mm3 (0.00-0.68); EOSINOPHILS PERCENT AUTO 6 % (0-6); Hematocrit 44.1 % (37.0-53.0); Hemoglobin 15.2 g/dL (13.5-17.5); IMMATURE GRAN ABSOLUTE AUTO 0.03 K/mm3 (0.00-0.10); IMMATURE GRAN PERCENT AUTO 0 % (0-1); LYMPHOCYTES ABSOLUTE AUTO 2.44 K/mm3 (0.84-5.20); LYMPHOCYTES PERCENT AUTO 26 % (21-46); MONOCYTES ABSOLUTE AUTO 0.86 K/mm3 (0.16-1.47); MONOCYTES PERCENT AUTO 9 % (4-13); Mean Corpuscular HGB 29.3 pg (26.0-34.0); Mean Corpuscular HGB Conc 34.5 g/dL (31.5-36.5); Mean Corpuscular Volume 85 fL (80-100); Mean Platelet Volume 10.8 fL (9.1-12.4); NEUTROPHILS ABSOLUTE AUTO 5.45 K/mm3 (1.96-9.15); NEUTROPHILS PERCENT AUTO 58 % (41-73); Platelet Count 190 K/mm3 (150-400); RDW Coefficient Variation 13.7 % (11.7-14.2); RDW Standard Deviation 42.5 fL (35.1-46.3); Red Blood Cell Count 5.18 M/mm3 (4.30-5.90); White Blood Cell Count 9.38 K/mm3 (4.00-11.30)
[2023-11-17 08:41] LABS: Bun/Creatinine Ratio 17.4 (12.0-20.0); Calcium, Blood 8.8 mg/dL (8.5-10.1); Creatinine, Blood 1.15 mg/dL (0.60-1.20)
[2023-11-17] MEDS ORDERED: CEFD300 PO (09:34)
[2023-11-17] MEDS ORDERED: Clindamycin HC150 MG PO (09:34)
[2023-11-17] MEDS ORDERED: Percocet 5-3251 EACH PO ×2 (09:36→09:37)
[2023-11-17 10:00] VITALS: BP 162/92
== END 2023-11-17 10:20 | disposition home or self-care (01) ==
LOC: ER 01:55
PROVIDERS: Student in an Organized Health Care Education/Training Program
DX: L02.01 Cutaneous abscess of face (principal); L03.211 Cellulitis of face; Z79.899 Other long term (current) drug therapy; Z79.82 Long term (current) use of aspirin; I10 Essential (primary) hypertension; F17.210 Nicotine dependence, cigarettes, uncomplicated
CPT/HCPCS: 80048; 85025; J0696; J1885; J3010

== ENCOUNTER 2023-12-26 13:00 | Inpatient (IN) | payer OTHER ==
[~2023-12-26] VITALS: Ht 177.8 cm; Wt 92.5 kg
[~2023-12-26 13:00] MED LIST changes: +Clindamycin HC150 MG PO
[2023-12-26] MEDS ORDERED: Dexamethasone Sod Phos 10 MG/ML 1ML VIAL IV ONE (13:15)
[2023-12-26] MEDS ORDERED: Ketorolac Tromethamine 15mg Vial IV ONE (13:15)
[2023-12-26 13:30] LABS: BASOPHILS ABSOLUTE AUTO 0.07 K/mm3 (0.00-0.23); BASOPHILS PERCENT AUTO 0 % (0-2); EOSINOPHILS ABSOLUTE AUTO 0.16 K/mm3 (0.00-0.68); EOSINOPHILS PERCENT AUTO 1 % (0-6); Hematocrit 45.5 % (37.0-53.0); Hemoglobin 15.6 g/dL (13.5-17.5); IMMATURE GRAN ABSOLUTE AUTO 0.08 K/mm3 (0.00-0.10); IMMATURE GRAN PERCENT AUTO 0 % (0-1); LYMPHOCYTES ABSOLUTE AUTO 1.13 K/mm3 (0.84-5.20); LYMPHOCYTES PERCENT AUTO 6 % (21-46); MONOCYTES ABSOLUTE AUTO 1.95 K/mm3 (0.16-1.47); MONOCYTES PERCENT AUTO 11 % (4-13); Mean Corpuscular HGB 29.3 pg (26.0-34.0); Mean Corpuscular HGB Conc 34.3 g/dL (31.5-36.5); Mean Corpuscular Volume 86 fL (80-100); Mean Platelet Volume 10.8 fL (9.1-12.4); NEUTROPHILS ABSOLUTE AUTO 14.42 K/mm3 (1.96-9.15); NEUTROPHILS PERCENT AUTO 81 % (41-73); Platelet Count 196 K/mm3 (150-400); RDW Coefficient Variation 13.9 % (11.7-14.2); RDW Standard Deviation 43.3 fL (35.1-46.3); Red Blood Cell Count 5.32 M/mm3 (4.30-5.90); White Blood Cell Count 17.81 K/mm3 (4.00-11.30)
[2023-12-26 14:04] LABS: C-REACTIVE PROTEIN, EXT RANGE 18.4 mg/dL (0.000-0.300)
[2023-12-26] MEDS ORDERED: Dexamethasone Sod Phos 10 MG/ML 1ML VIAL ONE (14:04)
[2023-12-26 14:25] LABS: Albumin, Blood 3.4 g/dL (3.4-5.0); Albumin/Globulin Ratio 0.7 (0.8-1.8); Bilirubin, Total 0.7 mg/dL (0.1-1.0); Bun/Creatinine Ratio 10.9 (12.0-20.0); Calcium, Blood 8.8 mg/dL (8.5-10.1); Creatinine, Blood 1.01 mg/dL (0.60-1.20); Globulin, Blood 4.9 g/dL (2.2-4.0); Potassium, Blood 3.8 mmol/L (3.5-5.5); Total Protein, Blood 8.3 g/dL (6.4-8.2)
[2023-12-26] MEDS ORDERED: Vancomycin HCL 2,000 MG in NS 520 ML IV ONE (14:45)
[2023-12-26] MEDS ORDERED: Ampicillin Sod/Sulbactam Sod 3 GM in NS 100 ML IV ONE (14:45)
[2023-12-26] MEDS ORDERED: NS 100 ML IV ONE ×2 (14:54→21:32)
[2023-12-26] MEDS ORDERED: Ampicillin Sod/Sulbactam Sod 3 GM ONE ×2 (14:54→21:32)
[2023-12-26] MEDS ORDERED: HYDROmorphone HCl/Pf 1MG SYR IV ONE ×2 (15:05→15:50)
[2023-12-26] MEDS ORDERED: FentaNYL Citrate 50 MCG/ML 2 ML Injection IV ONE (17:40)
[2023-12-26] MEDS ORDERED: Metoclopramide HCl 5MG / ML 2ML Vial IV PRN (18:45)
[2023-12-26] MEDS ORDERED: Ondansetron HCl 2 MG / ML 2ML Vial IV PRN (18:45)
[2023-12-26] MEDS ORDERED: FentaNYL Citrate 50 MCG/ML 2 ML Injection IV PRN (18:45)
[2023-12-26] MEDS ORDERED: Ketorolac Tromethamine 15mg Vial IV PRN (19:00)
[2023-12-26] MEDS ORDERED: Lactated Ringer's 1,000 ML IV ONE (19:00)
[2023-12-26] MEDS ORDERED: Lactated Ringer's 1,000 ML IV SCH (20:00)
[2023-12-26] MEDS ORDERED: Ampicillin Sod/Sulbactam Sod 3 GM in NS 100 ML IV SCH (21:00)
[2023-12-26 22:16] VITALS: BP 149/90
--- NOTE | 2023-12-26 23:37 | NUR ---
PATIENT IS A NEW ADMIT FROM THE ED. AXOX 4 AND ARRIVED VIA W/C, SELF TRANSFER TO BED AND INDEPENDENT IN ROOM. DENIES CHEST PAIN, SOB, AND N/V. REPORTS THROAT AND LEFT HAND CELLULITUS PAIN. FAILED TO PROVIDE A UA WHEN ASKED REPORTING HE FORGOT. VERBALIZES SMOKES MARIJUANA DAILY. RIGHT BICEP BURN ROSAS PENCIL ERASER SIZE AND SORE TO RIGHT CHEEK PENCIL SIZE. ABRASION TO LEFT LOWER BACK. ABLE TO EAT REGULAR DIET SANDWICH WITH SOME DIFFICULTY REMINDED TO EAT SLOWLY AND SMALL BITES. ORIENTED TO ROOM AND CALL LIGHT SYSTEM. LR INFUSING @ 100 mL/HR AND IV ABX. SIGNIFICANT OTHER ALLOWED INTO ROOM TO BRING CLOTHES. WCTM.
[2023-12-27] MEDS ORDERED: Vancomycin HCL 1,500 MG in NS 250 ML IV SCH (02:00)
[2023-12-27] MEDS ORDERED: NS 100 ML IV ONE ×4 (04:00→20:19)
[2023-12-27] MEDS ORDERED: Ampicillin Sod/Sulbactam Sod 3 GM ONE ×4 (04:00→20:19)
[2023-12-27 05:10] VITALS: BP 152/82
[2023-12-27 05:14] LABS: BASOPHILS ABSOLUTE AUTO 0.03 K/mm3 (0.00-0.23); BASOPHILS PERCENT AUTO 0 % (0-2); EOSINOPHILS PERCENT AUTO 0 % (0-6); Hematocrit 41.8 % (37.0-53.0); Hemoglobin 14.1 g/dL (13.5-17.5); IMMATURE GRAN ABSOLUTE AUTO 0.15 K/mm3 (0.00-0.10); IMMATURE GRAN PERCENT AUTO 1 % (0-1); LYMPHOCYTES ABSOLUTE AUTO 1.11 K/mm3 (0.84-5.20); LYMPHOCYTES PERCENT AUTO 6 % (21-46); MONOCYTES ABSOLUTE AUTO 1.15 K/mm3 (0.16-1.47); MONOCYTES PERCENT AUTO 7 % (4-13); Mean Corpuscular HGB 28.8 pg (26.0-34.0); Mean Corpuscular HGB Conc 33.7 g/dL (31.5-36.5); Mean Corpuscular Volume 85 fL (80-100); Mean Platelet Volume 11.5 fL (9.1-12.4); NEUTROPHILS ABSOLUTE AUTO 15.03 K/mm3 (1.96-9.15); NEUTROPHILS PERCENT AUTO 86 % (41-73); Platelet Count 249 K/mm3 (150-400); RDW Coefficient Variation 13.9 % (11.7-14.2); RDW Standard Deviation 43.2 fL (35.1-46.3); White Blood Cell Count 17.47 K/mm3 (4.00-11.30)
--- NOTE | 2023-12-27 05:14 | NUR ---
URINE TOX SCREEN COLLECTED AND SENT TO LAB. WCTM.
[2023-12-27 05:46] LABS: U Amphetamine Screen DETECTED; U Barbituate Screen Not Detected; U Benzodiazapine Screen Not Detected; U Buprenorphine Screen Not Detected; U Cannabinoids Screen DETECTED; U Cocaine Screen Not Detected; U Methadone Screen Not Detected; U Methamphetamine Screen DETECTED; U Opiates Screen Not Detected; U Oxycodone Screen Not Detected; U Phencyclidine Screen Not Detected
[2023-12-27 06:06] LABS: Albumin, Blood 2.9 g/dL (3.4-5.0); Albumin/Globulin Ratio 0.6 (0.8-1.8); Bilirubin, Total 0.3 mg/dL (0.1-1.0); Bun/Creatinine Ratio 20.3 (12.0-20.0); Calcium, Blood 8.9 mg/dL (8.5-10.1); Creatinine, Blood 0.89 mg/dL (0.60-1.20); Globulin, Blood 4.6 g/dL (2.2-4.0); Potassium, Blood 4.2 mmol/L (3.5-5.5); Total Protein, Blood 7.5 g/dL (6.4-8.2)
[2023-12-27 08:09] VITALS: BP 144/82
[2023-12-27] MEDS ORDERED: Lisinopril 20 MG Tab PO SCH (09:00)
[2023-12-27] MEDS ORDERED: Enoxaparin 40 MG/0.4 ML SYR SC SCH (09:00)
[2023-12-27] MEDS ORDERED: Phenol/Sodium Phenolate Oral Spray 180 ML MM PRN (10:15)
--- NOTE | 2023-12-27 14:50 | NUR ---
PATIENT SNORRING LOUDLY, HARD TO WAKE, TAKES PATIENT AWHILE TO ORIENT, REMINDED WHEN MEALS ARE IN ROOM AND CHECKS BEING DONE, PATIENT QUICKLY BACK TO SLEEP, CALL LIGHT WITH IN REACH
[2023-12-27 15:07] VITALS: BP 148/81
--- NOTE | 2023-12-27 18:12 | NUR ---
NO ACUTE CHANGES, INDEPEDANT IN ROOM, EDUCATED PATIENT TO NOT RUB EYES WITH LEFT INFECTED HAND, LEFT HAND RED AND SWOLLEN, ANTIBIOTICS GIVEN, TORADOL FOR PAIN, THROAT SPRAY GIVEN. ALERT AND ORIENTED TO ALL, CALL LIGHT WITH IN REACH, WILL RELAY TO PM RN
[2023-12-27 20:31] VITALS: BP 156/81
[2023-12-28] VITALS (7 sets, daily range): BP systolic 149–180; BP diastolic 95–114
[2023-12-28 01:19] LABS: Hematocrit 38.8 % (37.0-53.0); Hemoglobin 13.4 g/dL (13.5-17.5); Mean Corpuscular HGB 29.1 pg (26.0-34.0); Mean Corpuscular HGB Conc 34.5 g/dL (31.5-36.5); Mean Corpuscular Volume 84 fL (80-100); Mean Platelet Volume 11.1 fL (9.1-12.4); Platelet Count 213 K/mm3 (150-400); RDW Coefficient Variation 13.9 % (11.7-14.2); RDW Standard Deviation 42.8 fL (35.1-46.3); White Blood Cell Count 13.39 K/mm3 (4.00-11.30)
[2023-12-28 01:42] LABS: Anion Gap 11 mmol/L (3-11); Blood Urea Nitrogen 18 mg/dL (8-24); Bun/Creatinine Ratio 17.3 (12.0-20.0); CO2, Blood 26 mmol/L (21-32); Calcium, Blood 8.4 mg/dL (8.5-10.1); Chloride, Blood 110 mmol/L (98-108); Creatinine, Blood 1.04 mg/dL (0.60-1.20); Glomerular Filtration Rate 93 (60-); Glucose, Blood 219 mg/dL (70-99); Potassium, Blood 3.5 mmol/L (3.5-5.5); Sodium, Blood 143 mmol/L (136-145); Vancomycin, Trough 8.7 ug/mL (5.0-10.0)
[2023-12-28] MEDS ORDERED: Vancomycin HCL 1,250 MG in NS 250 ML IV SCH (02:00)
[2023-12-28] MEDS ORDERED: Ampicillin Sod/Sulbactam Sod 3 GM in NS 100 ML IV SCH (04:00)
[2023-12-28] MEDS ORDERED: Ampicillin Sod/Sulbactam Sod 3 GM ONE ×5 (04:18→22:46)
[2023-12-28] MEDS ORDERED: NS 100 ML IV ONE ×5 (04:18→22:45)
--- NOTE | 2023-12-28 06:33 | NUR ---
ROOF SERVICE TECHNICIAN SUMMARY NO ACUTE CHANGES. PT A/OX4. INDEPENDENT IN THE ROOM. ABLE TO MAKE NEEDS KNOWN. PT CONTINUES TO C/O OF SEVERE THROAT PAIN 01/13 CONSISTANTLY. PT MED W/TORODOL AND FENTANYL--PT REPORTS LITTLE RELIEF. ABOX GIVEN PER JUL. CALL LIGHT ACCESSIBLE.
[2023-12-28] MEDS ORDERED: HYDROmorphone HCl/Pf 1MG SYR IV PRN (08:35)
[2023-12-28] MEDS ORDERED: Losartan Potassium 50 MG Tab PO SCH (09:00)
[2023-12-28] MEDS ORDERED: AmLODIPine Besylate 5 MG Tab PO SCH (09:00)
[2023-12-28] MEDS ORDERED: HYDROcodone 5-APAP 325 TAB PO PRN (12:25)
[2023-12-28] MEDS ORDERED: Benzocaine Oral Spray 0.5ML UD MT PRN (15:45)
--- NOTE | 2023-12-28 16:21 | NUR ---
SHIFT SUMMARY; PATIENT SLEEPING MOST OF SHIFT. SNORING RESPIRATIONS HEARD. HE DOES ROUSE EASILY WITH VERBAL STIMULI AND EATS MEALS AT 95%. PATIENT USES CALL LIGHT TO ASK FOR PAIN THIS AFTERNOON AT 1530. MEDICATED WITH DILAUDID 1MG IV. 1 MINUTE AFTER THIS RN LEAVES ROOM PATIENT PLACES CALL LIGHT ON AND IS NOTED TO BE COUGHING AND BLOOD IS OOZING FROM MOUTH. QUARTER SIZE BLOOD CLOT TO SHEETS NOTED. THIS RN ASKS PATIENT TO CALM DOWN AND STOP SHOUTING. PATIENT MAKING GROWLING NOISES AND SPITTING BLOOD INTO GARBAGE CAN. CUP OF ICE CHIPS PROVIDED AND SMALL GLASS ROOM TEMP WATER PROVIDED. THIS RN ASKING PATIENT TO SHISH AND SPIT. PATIENT REFUSES. SAYS ITS THE "WORSE PAIN EVERY" IS NOTIFIED AND ORDER RECEIVED FOR HURRICANE SPRAY RECEIVED. REPORT TO FABY MERIDA WHO WILL ASSUME CARE OF THIS PATIENT.
--- NOTE | 2023-12-28 18:09 | NUR ---
ASSUMED CARE OF THIS PT AT 1421, REPORT RECEIVED FROM MAGNOLIA JIMÉNEZ. PT MEDICATED FOR PAIN SINCE THE TRANSFER. SEE SHIFT SUMMARY FOR MORE DURING THE EARLIER PORTION OF THE SHIFT.
[2023-12-29 01:42] LABS: Vancomycin, Trough 15.2 ug/mL (5.0-10.0)
[2023-12-29 02:20] VITALS: BP 162/115
[2023-12-29] MEDS ORDERED: Ampicillin Sod/Sulbactam Sod 3 GM ONE (06:13)
[2023-12-29] MEDS ORDERED: NS 100 ML IV ONE (06:13)
--- NOTE | 2023-12-29 06:44 | NUR ---
DIRECTOR COMPLIANCE SUMMARY PT A/OX4. NO ACTUE CHANGES. PT ABLE TO MAKE NEEDS KNOWN AND USES CALL LIGHT APPROPRIATELY. PT CONTINUES TO C/O OF 01/13 PAIN IN THRAOT. MEDS FOR PAIN PER JUL. PT SCRATED SORE ON RIGHT CHEEK; SMALL AMOUNT OF BLOOD; COVERED WITH BANDAID.
[2023-12-29 07:43] VITALS: BP 149/108
[2023-12-29] MEDS ORDERED: Doxycycline Hyclate 100 MG TAB PO SCH (09:00)
--- NOTE | 2023-12-29 11:03 | NUR ---
DR LOOMIS TO BEDSIDE TO DISCUSS CARE PLAN.
[2023-12-29 14:44] VITALS: BP 175/108
[2023-12-29 20:46] VITALS: BP 172/118
--- NOTE | 2023-12-29 20:59 | NUR ---
DAY SHIFT SUMMARY: A&Ox4. CALLS APPROPRIATELY. EDUCATION REGARDING TURNING OFF OR SILENCING IV PUMPS INSTEAD OF CALLING NURSE THIS CAUSES DELAY AND INACCURACE IN TROUGH DRAWS. IV PATENT. LR RUNNING TODAY. MEDICATED ROUTINELY FOR PAIN D/T PAIN [id number] IN AREA OF PERITONSILLAR ABSCESS. PLANS FOR DC TOMORROW. REPORT TO ONCOMING RN.
[2023-12-30 04:47] VITALS: BP 156/106
--- NOTE | 2023-12-30 04:49 | NUR ---
HAND FORMER HELPER SUMMARY PT A/OX4. ADMIT FOR TONSILLAR ABCESS AND LEFT HAND CELLULITIS. NO ACUTE CHANGES THIS SHIFT. PT CONTINUE TO REPORT 10/10 PAIN; MEDS PER MAR. IMPROVING REDNESS TO LEFT HAND. PT CAN BECOME AGITATED AT TIMES AND FRUSTRATED WITH INTERUPTIONS TO SLEEP. PT ABLE TO MAKE NEEDS KNOWN. CALL LIGHT ACCESSIBLE.
[2023-12-30 07:14] VITALS: BP 163/107
[2023-12-30 09:37] LABS: Hematocrit 47.3 % (37.0-53.0); Hemoglobin 16.2 g/dL (13.5-17.5); Mean Corpuscular HGB 28.3 pg (26.0-34.0); Mean Corpuscular HGB Conc 34.2 g/dL (31.5-36.5); Mean Corpuscular Volume 83 fL (80-100); Mean Platelet Volume 10.2 fL (9.1-12.4); Platelet Count 281 K/mm3 (150-400); RDW Coefficient Variation 13.5 % (11.7-14.2); RDW Standard Deviation 40.6 fL (35.1-46.3); Red Blood Cell Count 5.72 M/mm3 (4.30-5.90); White Blood Cell Count 12.09 K/mm3 (4.00-11.30)
[2023-12-30 09:58] LABS: Anion Gap 9 mmol/L (3-11); Blood Urea Nitrogen 18 mg/dL (8-24); Bun/Creatinine Ratio 22.8 (12.0-20.0); CO2, Blood 28 mmol/L (21-32); Calcium, Blood 9.1 mg/dL (8.5-10.1); Chloride, Blood 102 mmol/L (98-108); Creatinine, Blood 0.79 mg/dL (0.60-1.20); Glomerular Filtration Rate 114 (60-); Glucose, Blood 141 mg/dL (70-99); Sodium, Blood 135 mmol/L (136-145); Vancomycin, Trough 21.3 ug/mL (5.0-10.0)
[2023-12-30 10:08] LABS: BAND PERCENT MAN 18 % (0-8); BASOPHILS PERCENT MAN 0 % (0-2); EOSINOPHILS PERCENT MAN 0 % (0-6); LYMPHOCYTES ABSOLUTE MAN 0.84 K/mm3 (0.84-5.20); LYMPHOCYTES PERCENT MAN 7 % (21-46); MONOCYTES ABSOLUTE MAN 0.36 K/mm3 (0.16-1.47); MONOCYTES PERCENT MAN 3 % (4-13); MYELOCYTE ABSOLUTE MAN 0.12 K/mm3 (0.00-0.00); MYELOCYTE PERCENT MAN 1 % (0-0); NEUTROPHILS ABSOLUTE MAN 10.76 K/mm3 (1.96-9.15); SEG NEUTROPHILS PERCENT MAN 71 % (41-73); TOTAL CELLS COUNTED 100
[2023-12-30] MEDS ORDERED: AMLO5 PO (10:51)
[2023-12-30] MEDS ORDERED: LINE600 PO (10:52)
[2023-12-30] MEDS ORDERED: [UNRECOGNIZED DRUG - OTHER] MT (10:52)
[2023-12-30 12:32] VITALS: BP 156/109
--- NOTE | 2023-12-30 12:42 | NUR ---
DISCHARGE WRITTEN AND VERBAL DISCHARGE INSTRUCTIONS PROVIDED TO PT, HE REPORTED UNDERSTAND. PT IS WAITING FOR TRANSPORT HOME. PT PROVIDED WITH SCRIPT FOR PAIN MEDICATION AND PHONE NUMBER FOR DR. HENSON'S OFFICE FOR F/U. PT ENCOURAGED TO F/U WITH PCP REGARDING ELEVATED BLOOD PRESSURE. PT'S BP HAS BEEN ELEVATED T/O HIS HOSPITAL STAY, DR. LOOMIS AWARE.
--- NOTE | 2023-12-30 13:45 | NUR ---
PT DISCHARGED AT 1344
== END 2023-12-30 13:45 | disposition home or self-care (01) | DRG 872 ==
LOC: ER 13:00 → MEDS 18:41
PROVIDERS: Internal Medicine; Nurse Practitioner Acute Care; Physician Assistant; ADMIT Family Medicine
PROC: 0C9P3ZZ Drainage of Tonsils, Percutaneous Approach (ICD-10-PCS; principal; 2023-12-26)
PROC: 3E03329 Introduction of Other Anti-infective into Peripheral Vein, Percutaneous Approach (ICD-10-PCS; 2023-12-26)
DX: A41.02 Sepsis due to Methicillin resistant Staphylococcus aureus (principal); J36 Peritonsillar abscess; L03.114 Cellulitis of left upper limb; I10 Essential (primary) hypertension; F15.10 Other stimulant abuse, uncomplicated; F17.210 Nicotine dependence, cigarettes, uncomplicated; Z86.14 Personal history of Methicillin resistant Staphylococcus aureus infection; Z79.82 Long term (current) use of aspirin
CPT/HCPCS: 10160; 36415; 70487; 80048; 80053; 80202; 83605; 85025; 85027; 86140; 87040; 96365; 96366; 96367; 96375; 96376; 99285-25; A9270; J0295; J1100; J1170; J1650; J1885; J3010; J3370; J7040; J7050; J7120; Q9967

== ENCOUNTER 2024-02-09 11:37 | Emergency (ER) | payer OTHER ==
[~2024-02-09] VITALS: Ht 177.8 cm; Wt 95.2 kg
[~2024-02-09 11:37] MED LIST changes: +AMLO5 PO; +LINE600 PO; +[UNRECOGNIZED DRUG - OTHER] MT
[2024-02-09 13:01] LABS: BASOPHILS ABSOLUTE AUTO 0.06 K/mm3 (0.00-0.23); BASOPHILS PERCENT AUTO 1 % (0-2); EOSINOPHILS PERCENT AUTO 2 % (0-6); Hematocrit 47.4 % (37.0-53.0); Hemoglobin 16.5 g/dL (13.5-17.5); IMMATURE GRAN ABSOLUTE AUTO 0.05 K/mm3 (0.00-0.10); IMMATURE GRAN PERCENT AUTO 1 % (0-1); LYMPHOCYTES ABSOLUTE AUTO 2.52 K/mm3 (0.84-5.20); LYMPHOCYTES PERCENT AUTO 29 % (21-46); MONOCYTES ABSOLUTE AUTO 0.88 K/mm3 (0.16-1.47); MONOCYTES PERCENT AUTO 10 % (4-13); Mean Corpuscular HGB 28.7 pg (26.0-34.0); Mean Corpuscular HGB Conc 34.8 g/dL (31.5-36.5); Mean Corpuscular Volume 82 fL (80-100); Mean Platelet Volume 11.2 fL (9.1-12.4); NEUTROPHILS ABSOLUTE AUTO 5.03 K/mm3 (1.96-9.15); NEUTROPHILS PERCENT AUTO 58 % (41-73); Platelet Count 227 K/mm3 (150-400); RDW Coefficient Variation 14.2 % (11.7-14.2); RDW Standard Deviation 42.5 fL (35.1-46.3); Red Blood Cell Count 5.75 M/mm3 (4.30-5.90); White Blood Cell Count 8.74 K/mm3 (4.00-11.30)
[2024-02-09 13:17] LABS: Albumin, Blood 4.3 g/dL (3.4-5.0); Albumin/Globulin Ratio 1.3 (0.8-1.8); Bilirubin, Total 0.6 mg/dL (0.1-1.0); Bun/Creatinine Ratio 10.7 (12.0-20.0); Calcium, Blood 9.1 mg/dL (8.5-10.1); Creatinine, Blood 1.03 mg/dL (0.60-1.20); Globulin, Blood 3.3 g/dL (2.2-4.0); Potassium, Blood 4.4 mmol/L (3.5-5.5); Total Protein, Blood 7.6 g/dL (6.4-8.2)
[2024-02-09 14:20] VITALS: BP 143/91
[2024-02-09] MEDS ORDERED: Acetaminophen 325 MG TABLET PO ONE (14:30)
== END 2024-02-09 14:31 | disposition home or self-care (01) ==
LOC: ER 11:37
PROVIDERS: Physician Assistant
DX: R10.11 Right upper quadrant pain (principal); I10 Essential (primary) hypertension; F17.200 Nicotine dependence, unspecified, uncomplicated; Z79.899 Other long term (current) drug therapy
CPT/HCPCS: 76705; 80053; 83690; 85025; 99284-25; A9270

== ENCOUNTER 2024-03-15 10:54 | Emergency (ER) | payer OTHER ==
[~2024-03-15] VITALS: Ht 177.8 cm; Wt 99.8 kg
[2024-03-15 10:57] VITALS: BP 158/105
[2024-03-15] MEDS ORDERED: Bactrim Ds Tab1 EACH PO (11:00)
== END 2024-03-15 11:00 | disposition home or self-care (01) ==
LOC: ER 10:54
DX: L02.01 Cutaneous abscess of face (principal); I10 Essential (primary) hypertension; F17.290 Nicotine dependence, other tobacco product, uncomplicated; Z86.14 Personal history of Methicillin resistant Staphylococcus aureus infection; Z79.899 Other long term (current) drug therapy; Z59.89 Other problems related to housing and economic circumstances
CPT/HCPCS: 99282

== ENCOUNTER 2024-04-03 11:34 | Emergency (ER) | payer OTHER ==
[~2024-04-03] VITALS: Ht 177.8 cm; Wt 99.8 kg
[~2024-04-03 11:34] MED LIST changes: +Bactrim Ds Tab1 EACH PO
[2024-04-03 11:38] VITALS: BP 183/111
[2024-04-03] MEDS ORDERED: SULTRIDS PO (13:14)
[2024-04-03] MEDS ORDERED: CEPH500 PO (13:14)
== END 2024-04-03 13:22 | disposition home or self-care (01) ==
LOC: ER 11:34
DX: L02.211 Cutaneous abscess of abdominal wall (principal); L03.311 Cellulitis of abdominal wall; I10 Essential (primary) hypertension; F17.210 Nicotine dependence, cigarettes, uncomplicated; Z79.899 Other long term (current) drug therapy
CPT/HCPCS: 99282